=== PATIENT | male | born 1960 | race Caucasian/White ===

== ENCOUNTER 2016-07-16 11:54 | Emergency (ER) | payer BC ==
[2016-07-16 12:06] VITALS: BP 147/91
--- NOTE | 2016-07-16 12:55 | UC ---
Shoulder Pain HPI - HPI Summary HPI Summary: 56 y/o male present to the urgent care c/o or RT shoulder pain for the past 2 days. Pt reports he has Hx of Rt rotator cuff tear for the past 4 years, but now he is having a flare up. He has been advised surgery, but he is hesitant to do it. He just wants a corticosteroid injection to relieve his pain. He has been taking a muscle relaxant and pain killer, but yesterday his pain increased. Now pain is 8/10. Patient denies numbness or paresthesias over the RT arm. Denies SOB, fever, N/V/D or chest pain. - History of Current Complaint Chief Complaint: UCUpperExtremity Stated Complaint: SHOULDER PAIN Time Seen by Provider: 07/16/16 12:14 Hx Obtained From: Patient Onset/Duration: Gradual Onset, Lasting Weeks, Still Present Timing: Constant Severity Initially: Moderate Severity Currently: Moderate Pain Intensity: 8 Pain Scale Used: 0-10 Numeric Character: Sharp - with movement, Stiffness Aggravating Factor(s): Movement, Lifting Alleviating Factor(s): Rest Associated Signs And Symptoms: Positive: Negative. Negative: Swelling, Redness , Bruising, Fever, Numbness/Tingling Related History: Similar Episode/Dx As - With Rotator cuff tear - Risk Factors DVT Risk Factors: Negative Septic Arthritis Risk Factor: Negative - Allergies/Home Medications Allergies/Adverse Reactions: Allergies Allergy/AdvReac Type Severity Reaction Status Date / Time Morphine Allergy "WIRES HIM" Verified 04/26/15 14:27 Niacin [From Niaspan] Allergy FLUSH Verified 04/26/15 14:27 PMH/Surg Hx/FS Hx/Imm Hx Previously Healthy: Yes Cardiovascular History: Hypertension, Myocardial Infarction - 2000 - Surgical History Surgical History: Yes Surgery Procedure, Year, and Place: c-spine fusion-[facility] (dr. hayes), STENT has card (04-14-05). right inguinal hernia 1984, tonsils 1964.LEFT KNEE ARTHROSCOPY 01/23 - Family History Known Family History: Positive: Cardiac Disease, Hypertension - Social History Occupation: Employed Part-time Alcohol Use: Occasionally Alcohol Amount: once wkly Substance Use Type: None Smoking Status (MU): Never Smoked Tobacco Review of Systems Constitutional: Negative Skin: Negative Eyes: Negative ENT: Negative Respiratory: Negative Cardiovascular: Negative Gastrointestinal: Negative Genitourinary: Negative Motor: Decreased ROM - RT shoulder due to pain with Hx of rotator cuff tear. Neurovascular: Negative Musculoskeletal: Decreased ROM - RT shouder Neurological: Negative Psychological: Negative All Other Systems Reviewed And Are Negative: Yes Physical Exam Triage Information Reviewed: Yes Appearance: Well-Appearing, No Pain Distress, Well-Nourished, Obese Vital Signs: Initial Vital Signs Temp 98 F 07/16/16 12:00 Pulse 71 07/16/16 12:00 Resp 18 07/16/16 12:00 BP 147/91 07/16/16 12:00 Pulse Ox 96 07/16/16 12:00 Vital Signs Reviewed: Yes Eye Exam: Normal Eyes: Positive: Conjunctiva Clear ENT Exam: Normal ENT: Positive: Normal ENT inspection, Hearing grossly normal, Pharynx normal, TMs normal Neck exam: Normal Neck: Positive: Supple, Nontender, No Lymphadenopathy Respiratory Exam: Normal Respiratory: Positive: Chest non-tender, Lungs clear, Normal breath sounds Cardiovascular Exam: Normal Cardiovascular: Positive: No Murmur, Pulses Normal Abdominal Exam: Normal Abdomen Description: Positive: Nontender, No Organomegaly, Soft. Negative: CVA Tenderness (R), CVA Tenderness (L) Bowel Sounds: Positive: Present Musculoskeletal: Positive: Other: - RT shoulder with decrease ROM due to pain. Mild tenderness over the acromoclavicular join on deep palpation. Positive pulses, sensation intact and strength intact. No swelling or erythema observed over the RT shoulder. LF shoulder ROM, strength. wnl. Neurological Exam: Normal Psychological Exam: Normal Skin Exam: Normal Shoulder Course/Dx - Course Course Of Treatment: Rt shoulder pain: Hx taken, Pt requesting a corticosteroid injection for shoulder pain. Hx of rotator cuff tear for the past 4 years. PE abnormal findings:Musculoskeletal: Positive: Other: - RT shoulder with decrease ROM due to pain. Mild tenderness over the acromoclavicular join on deep palpation. Positive pulses, sensation intact and strength intact. No swelling or erythema observed over the RT shoulder. LF shoulder ROM, strength. wnl. Pt advised we don't perform corticosteroid injection at the urgent care. Pt referred to DR Bowling. Orthopedic appt made for pt tomorrow at 10:15 am. Pt agreed and decline any pain medication until tomorrow since he still has pain meds at home. Pt educat on rotator cuff tears and discharge home. - Differential Dx/Diagnosis Differential Diagnosis/HQI/PQRI: Arthritis, Bursitis, Dislocation, Rotator Cuff Injury, Sprain, Strain, Tendonitis Provider Diagnoses: RT shoulder pain with Hx of RT shoulder Rotator cuff tear. Discharge - Discharge Plan Condition: Stable Disposition: HOME Patient Education Materials: Rotator Cuff Injury (ED) Referrals: Cullen Bowling MD [Medical Doctor] - No Primary Care Phys,NOPCP [Primary Care Provider] - 1 Day (Please f/u appt with Dr Dash Berman tomorrow at 10:15 am for further evaluation and treatment. Please be there 15 min earlier) Additional Instructions: Please continue taking muscle relaxant and pain meds until you see Dr Bowling tomorrow at 10:15 am. for the corticosteroid injection.
== END 2016-07-16 12:47 | disposition home or self-care (01) ==
LOC: UCEAST 11:54
DX: M75.101 Unspecified rotator cuff tear or rupture of right shoulder, not specified as traumatic (principal); I10 Essential (primary) hypertension; I25.2 Old myocardial infarction
CPT/HCPCS: 99211; G0463

== ENCOUNTER → 2018-03-31 08:21 | Day surgery (SDC) | payer BC ==
[~2018-03-31 08:21] MED LIST: Acetaminophen TAB* 325 MG PO PRN; Adenosine (DIAGNOSTIC) * 3 MG/ML 20 ML VIAL (60 MG) IV ONE; Adenosine* 3 MG/ML VIAL ONE; Aspirin 81 mg CHEW TAB* 81 MG TAB.CHEW PO SCH; Atorvastatin* 80 MG TAB PO SCH; Heparin 2 UNITS/ML IVPREMIX* 3,000 ML IV ONE; Heparin(*) 1000 UNIT/ML 10 ML VIAL CATH LAB IV ONE; Iohexol 350 (CONTRAST) 200 ML MDV IV ONE; Lidocaine 1% INJ* 10 MG/ML 30 ML SDV ONE; Midazolam* 1 MG/ML 10 ML VIAL (10 MG) ONE; NS 0.9% 1000 ML** 1,000 ML IV SCH; NS 0.9% 1000 ML** 400 ML IV SCH; Nitroglycerin TAB 0.4 MG* 0.4 MG TAB SL PRN; Ticagrelor* 90 MG TAB PO SCH; VERAPAMIL 2.5 MG/ML 2 ML VIAL ** 5 mg/2 ml ONE; fentaNYL* 50 MCG/ML 2 ML VIAL (100 MCG VIAL) ONE; nitroGLYCERIN DRIP* 25,000 MCG/250 ML BTL ONE
[2018-03-31 14:20] VITALS: BP 150/82
--- NOTE | 2018-03-31 15:40 | CATH ---
CC: Dr. Gabriel Younger; Dr. Christensen CATH REPORT: DATE OF PROCEDURE: 03/31/18 PRIMARY CARE PHYSICIAN: Gabriel Younger MD SACK SEWER: Dr. Christensen. PROCEDURES: 1. Right radial artery access, bilateral selective coronary cineangiography. 2. Left heart catheterization. 3. Left ventriculography. 4. FFR evaluation, LAD. HISTORY: A 57-year-old male with non-Q wave infarct in 2000, cath at that time reported 50% stenosis. In 2005, he had progression of disease with a high- grade LAD stenosis, stented with a 4 x 15 Hot Roll Laminator bare-metal stent in [place]. At that time, the RPL was occluded and collateralized. 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 Stress echo showed good exercise tolerance, with ST changes and by report, apicolateral and inferior hypokinesis. He also describes very mild exertional dyspnea. His lipids have been very well controlled. PROCEDURE ACCESS: Right radial artery, sheath 6F slender. MEDICATIONS: Subcu lidocaine, IV Versed, IV fentanyl, heparin 3000 units, 2000 units IV, verapamil 3 mg, nitroglycerin 300 mcg IA, nitroglycerin 100 mcg IA preFFR of LAD, adenosine 100, 100 mcg IC bolus for FFR measurement x2. DIAGNOSTIC CATHETERS: 5F TIG4. Because of the absent left main, it was difficult to selectively engage the LAD, a 6FVL3.5 guide was too short, the LAD was accessed with an [place] left 3.5 6-Spanish guide. Pressure wire, [place]. HEMODYNAMICS: Initial LV 107/5. AO 97/67. Postdiagnostic coronary angiography LV 134/3-14, no aortic valve gradient on pullback. FFR LAD 0.85, 0.81. ANGIOGRAPHY: I am unable to review his cath film from 2006 because of software issues. RCA: The RCA is a large, dominant, diffusely diseased with nonobstructive plaque in its proximal half, it is heavily calcified. There is a smooth tubular 50% stenosis before the crux. The PDA has a mid 75% stenosis, distal reference diameter is approximately 2 mm. The RPL continuation is occluded as before, filled by left to right collaterals. Left main: The left main is absent. Circumflex: The circumflex is large, not dominant, with fairly diffuse plaquing without significant stenosis. It supplies a very small first marginal branch, which has tandem 80% stenosis, is less than 2 mm in diameter. This is followed by a moderate marginal that has 30% proximal stenosis, the circumflex ends with a moderate posterolateral branch. The AV groove circumflex continuation provides a transatrial collateral to the distal RPL. LAD: The LAD is moderate, diffusely diseased without proximal stenosis. The prior proximal stent is widely patent. The mid LAD has an eccentric 60% stenosis, which was evaluated with FFR, the LAD wraps around the apex. Injection on fluoroscopy postFFR showed no change in LAD anatomy. LV gram: LV size and function are normal with EF of 55%, the previously described inferobasilar hypokinesis has apparently improved. CONCLUSION: 1. Diffuse three-vessel coronary atherosclerosis with patent LAD stent and mid LAD stenosis with nonischemic FFR. Circumflex OM1 has high-grade stenosis, but it is too small for intervention. The RPDA has a stentable stenosis, which subtends a relatively small amount of myocardium, the distal RCA (RPL) is a [employer]IF[employer] and not well suited for percutaneous revascularization. Therefore, the RPDA stenosis is the stentable lesion. Given his functional class I symptoms and lack of limitation, he will continue with medical management with the understanding that RPD stenting can be performed in the future depending on functional limitation. I do not think his disease is severe enough to justify complete revascularization with bypass grafting. 2. Normal LV systolic function with normal left-sided hemodynamics. 3. 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 4. Successful right radial artery access. [id number]/[facility] #: [id number] LESVIA
== END | disposition home or self-care (01) ==
LOC: CHICATH 08:21
PROVIDERS: ATTEND Internal Medicine Cardiovascular Disease
DX: I25.10 Atherosclerotic heart disease of native coronary artery without angina pectoris (principal); R07.9 Chest pain, unspecified; Z79.899 Other long term (current) drug therapy
CPT/HCPCS: 93458; 99156; 99157; C1769; C1887; J0153; J1644; J2250; J3010